=== PATIENT | male | born 1960 | race Caucasian/White ===

== ENCOUNTER 2019-03-03 10:54 | Outpatient (CLI) | payer OTHER ==
[2019-02-01 10:15] VITALS: BP 110/70
--- NOTE | 2019-03-05 13:51 | Diagnostic Imaging Report ---
[facility] [id number] [facility] [address] [place], [place]. [address] Report Submission Date: Mar 03, 2019 4:09:55 PM CDT Patient Study Name: ALICE FLEMING Date: Mar 03, 2019 11:08:15 AM CDT Modality Type: CT\OT\SR Gender: M Description: CT CHEST W/O CONTRAST : 62 Institution: [facility] Physician: [place] Chest CT without contrast low-dose screening protocol History: Possible exposure to asbestos. 45 year smoking history 1 pack per day Technique: Helically acquired images were obtained through the chest using the low-dose screening protocol. Comparison: None. Baseline. The left lung is clear. Along the minor fissure, there is a 4 mm nodule, probably a fissural plaque. No additional right lung nodules are noted. There is mild posterior dependent atelectasis of the right lower lobe. No endotracheal or endobronchial masses are identified. There are a few shotty AP window nodes. The thoracic aorta is normal in caliber. Heart size is normal. There is no pericardial or pleural effusion. Vertebral body height is maintained throughout the thoracic spine. There is an old right clavicular fracture. Impression: No left lung nodules. 4 mm nodule along the minor fissure, likely a fissural plaque. LUNG-RADS category 2 (Benign appearance, less than 1% chance of malignancy) Recommendation: Continue annual screening with low-dose CT. Electronically signed on Mar 03, 2019 4:09:55 PM CDT by: Akilah GUZMÁN
== END 2019-03-03 10:56 ==
LOC: RAD 10:54
PROVIDERS: ATTEND Family Medicine
DX: Z12.2 Encounter for screening for malignant neoplasm of respiratory organs (principal)
CPT/HCPCS: 71250